=== PATIENT | male | born 1950 | race Caucasian/White ===

== ENCOUNTER 2021-06-27 19:47 | Observation (INO) | payer MEDICARE, SELFPAY ==
[2021-06-27] VITALS (14 sets, daily range): BP systolic 109–168; BP diastolic 61–81; PULSE 49–75; RESP 9–21; TEMP 36.9; O2SAT 95–100; BMI 26.6
--- NOTE | 2021-06-27 19:53 | DI.RAD.S_ITS ---
PROCEDURE: XR CHEST 1V INDICATIONS: chest pain TECHNIQUE: One view of the chest was acquired. COMPARISON: None. FINDINGS: Surgical changes and devices: None. Lungs and pleura: Lungs are clear. No pleural effusions or pneumothorax. Mediastinum: Mediastinal contours appear normal. Heart size is normal. Bones and chest wall: No suspicious bony lesions. Overlying soft tissues appear unremarkable. IMPRESSION: No acute cardiopulmonary abnormality Dictated by: Fahad Suero M.D. on 06/27/2021 at 20:40 Approved by: Fahad Suero M.D. on 06/27/2021 at 20:41
--- NOTE | 2021-06-27 20:09 | ED_ITS ---
HPI - Chest Pain General Chief Complaint: Chest Pain Stated Complaint: chest tightness x2 hours Time Seen by Provider: 06/27/21 19:52 History of Present Illness HPI narrative: 71M nonsmoker without any chronic medical history presents with his in the chief complaint of retrosternal chest pressure that started 2-3 hours prior to his arrival. He states that he was just getting ready to eat dinner when he started noticing symptoms. He denies any obvious provocation but states that rest seems to improve it. He states that at its most intense it was a 3/10 and currently is a 2/10. It was slightly worse when he walked in from registration. He denies any radiation. He admits to associated symptoms such as some mild lightheadedness and shortness of breath as well as nausea but no vomiting. He denies any unexplained diaphoresis. He denies any recent long distance travel o r injury nor clot but does have a remote history of prostate cancer. He denies any prior EKGs or history of provocative testing or echocardiogram Review of Systems Review of Systems Narrative: GENERAL: Denies chills, fatigue, malaise, fever, sweats. HEENT: Denies sinus pain, ear pain, sore throat, difficulty swallowing, dizziness. RESPIRATORY: Denies dyspnea, cough, wheezing, hemoptysis, sputum. CARDIOVASCULAR: See HPI GASTROINTESTINAL: Denies nausea, vomiting, abdominal pain, diarrhea, const ipation, melena. : Denies dysuria, frequency, incontinence, hematuria, urinary retention. MUSCULOSKELETAL: denies weakness, joint pain, or bony pain SKIN: Denies rash, skin lesions, or other NEUROLOGIC: Denies weakness, headache, numbness, change in speech, confusion, seizures, incoordination. PSYCHIATRIC: No concerning psychosocial issues. 12 point review of systems is negative except for those stated above Exam Narrative Exam Narrative: GENERAL: 71 year old patient appears stated age. Well-developed patient, in mild distress. HEAD: Atraumatic. Normocephalic. EYES: Pupils equal round and reactive. Extraocular motions intact. No scleral icterus. No injection or drainage. ENT: Nose without bleeding, purulent drainage. Throat without erythema, tonsillar hypertrophy or exudate. Airway patent. NECK: Trachea midline. Non tender CARDIOVASCULAR: Regular rate and rhythm without murmurs, gallops, or rubs. RESPIRATORY: Clear to auscultation. Breath sounds equal bilaterally. No wheezes, rales, or rhonchi. GASTROINTESTINAL: Abdomen soft, non-tender, nondistended. EXTREMITIES: No edema or joint tenderness. BACK: Nontender without deformity or crepitance. No flank tenderness. NEURO: AOx3. SKIN: No rash or erythema of visible areas Initial Vital Signs Initial Vital Signs: Vital Signs Blood Pressure 165/81 H 06/27/21 19:53 Scores HEART Score Heart Score history: Moderately Suspicious Heart Score EKG: Non-Specific repolarization disturbance Heart Score Age: > or = 65 years old Heart Score risk factors: No known risk factors Heart Score troponin: < or = to normal limit Heart Score Total: 4 Course Orders Ordered: ED Orders 06/27/21 19:53 XR chest 1V Stat 06/27/21 19:56 EKG-12 Lead Stat 06/27/21 20:01 Complete Blood Count AUTO DIFF Stat Comprehensive Metabolic Panel Stat D Dimer Stat Lipase Stat NT-proBNP (BNP-Adult 18+) Stat Prothrombin Time INR Stat Troponin & CK Cardiac Panel Stat 06/27/21 20:10 EKG-12 Lead Routine 06/27/21 20:26 EKG-12 Lead Routine 06/27/21 22:18 Troponin & CK Cardiac Panel Stat 06/27/21 23:49 Education, smoking cessation ONGOING 06/28/21 05:00 Basic Metabolic Panel Routine Complete Blood Count AUTO DIFF Routine Troponin I Routine Acetaminophen (Acetaminophen 325 Mg Tablet) 650 mg PO Q6HR PRN PRN Reason: Fever/Mild Pain (1-3) Aspirin (Aspirin Ec 81 Mg Tablet) 81 mg PO DAILY [facility] Atorvastatin Calcium (Atorvastatin 20 Mg Tablet) 80 mg PO DAILY [facility] Enoxaparin Sodium (Enoxaparin 40 Mg/0.4 Ml Syringe) 40 mg SUBCUT DAILY [facility] Nitroglycerin (Nitroglycerin 0.4 Mg Sl Tab) 0.4 mg SL [id number] PRN PRN Reason: Chest Pain Discontinued Medications Aspirin (Aspirin 81 Mg Chew Tab) 324 mg PO NOW ONE Stop: 06/27/21 19:54 Last Admin: 06/27/21 20:13 Dose: 162 mg Documented by: HERNAN Sodium Chloride (Normal Saline 0.9%) 1,000 mls @ 150 mls/hr IV CONT LENA Last Admin: 06/27/21 20:12 Dose: 150 mls/hr Documented by: HERNAN Nitroglycerin (Nitroglycerin 0.4 Mg Sl Tab) 0.4 mg SL [id number] PRN PRN Reason: Chest Pain Last Admin: 06/27/21 20:15 Dose: 0.4 mg Documented by: HERNAN Vital Signs Vital signs: Vital Signs - 8 hr 06/27/21 19:53 06/27/21 19:55 06/27/21 19:59 Temperature 98.4 F Pulse Rate 70 70 Respiratory Rate 18 16 Blood Pressure 165/81 H 165/81 H Pulse Oximetry 100 97 06/27/21 20:00 06/27/21 20:15 06/27/21 20:22 Temperature Pulse Rate 64 75 67 Respiratory Rate 16 12 Blood Pressure 168/81 H 109/66 Pulse Oximetry 98 95 06/27/21 20:30 06/27/21 21:00 06/27/21 21:30 Temperature Pulse Rate 54 L 49 L 51 L Respiratory Rate 13 12 9 L Blood Pressure 112/67 119/66 113/61 Pulse Oximetry 95 97 96 06/27/21 22:00 06/27/21 22:30 06/27/21 23:00 Temperature Pulse Rate 51 L 52 L 50 L Respiratory Rate 16 10 L 13 Blood Pressure 127/69 118/68 118/66 Pulse Oximetry 97 96 96 06/27/21 23:08 06/27/21 23:30 06/28/21 00:00 Temperature Pulse Rate 62 58 L 55 L Respiratory Rate 21 16 13 Blood Pressure 122/68 115/69 Pulse Oximetry 97 96 97 MDM - Chest Pain Lab Data Result diagrams: 06/27/21 20:01 06/27/21 20:01 Labs: Lab Results 06/27/21 06/27/21 06/27/21 Range/Units 20:01 20:01 20:01 WBC 5.0 (4.5-11.0) X10^3/uL RBC 4.63 (4.5-5.9) X10^6/uL Hgb 14.8 (13.5-17.5) g/dL Hct 43.1 (41-53) % MCV 93.1 (80-100) fL MCH 31.9 (26-34) PG MCHC 34.3 (30-36) % RDW 13.1 (11.6-14.8) % Plt Count 142 L (150-400) X10^3/uL Neut % (Auto) 46.6 L (50-75) % Lymph % (Auto) 37.4 (25-40) % [place] % (Auto) 12.3 (3-14) % Eos % (Auto) 3.1 (2-4) % Baso % (Auto) 0.6 (0-2) % Neut # (Auto) 2300 (4422-8323) /uL Lymph # (Auto) 1900 (1519-0693) /uL [place] # (Auto) 600 (0-900) /uL Eos # (Auto) 200 (0-450) /uL Baso # (Auto) 0 (0-100) /uL PT 12.0 (10.1-12.7) SECONDS INR 1.1 (0.9-1.3) D-Dimer (<230) ng/mL Sodium 133 L (137-145) mmol/L Potassium 3.9 (3.4-5.1) mmol/L Chloride 101 (98-107) mmol/L Carbon Dioxide 24 (22-32) mmol/L BUN 20 (9-20) mg/dL Creatinine 0.89 (0.66-1.25) mg/dL Estimated GFR > 60.0 (>60) mL/min BUN/Creatinine Ratio 22.5 H (6-22) Glucose 142 H (80-110) mg/dL Calcium 9.2 (8.4-10.2) mg/dL Total Bilirubin 0.5 (0.2-1.3) mg/dL AST 35 (17-59) IU/L ALT 28 (<50) IU/L Alkaline Phosphatase 53 (38-126) U/L Total Creatine Kinase 162 (55-170) U/L CK-MB (CK-2) 1.84 (<2.37) ng/mL CK-MB (CK-2) Rel Index 1.1 L (1.5-5.0) % Troponin I < 0.012 (0.01-0.034) ng/mL NT-Pro-B Natriuret Pep 114 (<125) pg/mL Total Protein 7.3 (6.3-8.2) g/dL Albumin 4.4 (3.5-5.0) g/dL Globulin 2.9 (1.7-4.1) g/dL Albumin/Globulin Ratio 1.5 (1.0-2.8) Lipase 177 (23-300) U/L 06/27/21 06/27/21 Range/Units 20:01 22:18 WBC (4.5-11.0) X10^3/uL RBC (4.5-5.9) X10^6/uL Hgb (13.5-17.5) g/dL Hct (41-53) % MCV (80-100) fL MCH (26-34) PG MCHC (30-36) % RDW (11.6-14.8) % Plt Count (150-400) X10^3/uL Neut % (Auto) (50-75) % Lymph % (Auto) (25-40) % [place] % (Auto) (3-14) % Eos % (Auto) (2-4) % Baso % (Auto) (0-2) % Neut # (Auto) (4960-7093) /uL Lymph # (Auto) (8470-1977) /uL [place] # (Auto) (0-900) /uL Eos # (Auto) (0-450) /uL Baso # (Auto) (0-100) /uL PT (10.1-12.7) SECONDS INR (0.9-1.3) D-Dimer < 200 (<230) ng/mL Sodium (137-145) mmol/L Potassium (3.4-5.1) mmol/L Chloride (98-107) mmol/L Carbon Dioxide (22-32) mmol/L BUN (9-20) mg/dL Creatinine (0.66-1.25) mg/dL Estimated GFR (>60) mL/min BUN/Creatinine Ratio (6-22) Glucose (80-110) mg/dL Calcium (8.4-10.2) mg/dL Total Bilirubin (0.2-1.3) mg/dL AST (17-59) IU/L ALT (<50) IU/L Alkaline Phosphatase (38-126) U/L Total Creatine Kinase 131 (55-170) U/L CK-MB (CK-2) 1.44 (<2.37) ng/mL CK-MB (CK-2) Rel Index 1.1 L (1.5-5.0) % Troponin I < 0.012 (0.01-0.034) ng/mL NT-Pro-B Natriuret Pep (<125) pg/mL Total Protein (6.3-8.2) g/dL Albumin (3.5-5.0) g/dL Globulin (1.7-4.1) g/dL Albumin/Globulin Ratio (1.0-2.8) Lipase (23-300) U/L Imaging Data Chest x-ray: Radiologist's Impression: Launch?[place] [address] XRay Report Signed Patient: Sang James MR#: [id number] : 1950 Acct:[id number] Age/Sex: 71 / M Date of Service: 06/27/21 Loc: ED Accession Number: [id number] ?? Procedure: XR chest 1V Ordering Provider: Sharif Hairston D.O. PROCEDURE:? XR CHEST 1V ? INDICATIONS:? chest pain ? TECHNIQUE:? One view of the chest was acquired.? ? COMPARISON:? None. ? FINDINGS:? ? Surgical changes and devices:? None.? ? Lungs and pleura:? Lungs are clear.? No pleural effusions or pneumothorax.? ? Mediastinum:? Mediastinal contours appear normal.? Heart size is normal.? ? Bones and chest wall:? No suspicious bony lesions.? Overlying soft tissues appear unremarkable.? ? IMPRESSION:? No acute cardiopulmonary abnormality ? ? Dictated by: Fahad Suero M.D. on 06/27/2021 at 20:40 ? ? Approved by: Fahad Suero M.D. on 06/27/2021 at 20:41 ? ECG Data Interpretation: EKG #1: Sinus rhythm with occasional PVCs. Right bundle branch block. No ST segmental elevations or depressions. T-wave inversions in lateral leads. EKG #2: largely unchanged EKG #3: unchanged Discharge Plan Departure Patient Disposition: Admitted as Observation Clinical Impression: Chest pain Admit Date/Time: 06/28/21 00:16 Admit Provider: Karlos Rosales
[2021-06-27 20:10] LABS: Add Manual Diff / Slide Review NO; Basophils Absolute Auto 0 /uL (0-100); Basophils Percent Auto 0.6 % (0-2); Eosinophils Absolute Auto 200 /uL (0-450); Eosinophils Percent Auto 3.1 % (2-4); Hematocrit 43.1 % (41-53); Hemoglobin 14.8 g/dL (13.5-17.5); Lymphocytes Absolute Auto 1900 /uL (1100-4500); Lymphocytes Percent Auto 37.4 % (25-40); Mean Corpuscular HGB Conc 34.3 % (30-36); Mean Corpuscular Hemoglobin 31.9 PG (26-34); Mean Corpuscular Volume 93.1 fL (80-100); Monocytes Absolute Auto 600 /uL (0-900); Monocytes Percent Auto 12.3 % (3-14); Neutrophils Absolute Auto 2300 /uL (1500-7000); Neutrophils Percent Auto 46.6 % (50-75); Platelet Count 142 X10^3/uL (150-400); Red Blood Cell Count 4.63 X10^6/uL (4.5-5.9); Red Cell Distribution Width 13.1 % (11.6-14.8)
[2021-06-27] MEDS: SODIUM CHLORIDE 0.9% 1,000 ML 150 ML IV (20:12)
[2021-06-27] MEDS: ASPIRIN 81 MG CHEW TAB 324 MG PO (20:13)
[2021-06-27] MEDS: NITROGLYCERIN 0.4 MG SL TAB SL (20:15)
[2021-06-27 20:18] LABS: INR 1.1 (0.9-1.3)
[2021-06-27 20:22] LABS: Alanine Aminotransferase 28 IU/L (<50); Albumin 4.4 g/dL (3.5-5.0); Albumin Globulin Ratio 1.5 (1.0-2.8); Alkaline Phosphatase 53 U/L (38-126); Aspartate Aminotransferase 35 IU/L (17-59); BUN Creatinine Ratio 22.5 (6-22); Bilirubin Total 0.5 mg/dL (0.2-1.3); Blood Urea Nitrogen 20 mg/dL (9-20); Calcium 9.2 mg/dL (8.4-10.2); Carbon Dioxide 24 mmol/L (22-32); Chloride 101 mmol/L (98-107); Creatine Kinase 162 U/L (55-170); D Dimer < 200 ng/mL (<230); Estimated Glomerular Filt Rate > 60.0 mL/min (>60); Globulin 2.9 g/dL (1.7-4.1); Glucose 142 mg/dL (80-110); HEMOLYSIS < 15 (0-50); Lipase 177 U/L (23-300); Potassium 3.9 mmol/L (3.4-5.1); Sodium 133 mmol/L (137-145); Total Protein 7.3 g/dL (6.3-8.2)
--- NOTE | 2021-06-27 20:25 | PC.NURSE ---
Pt given NTG x 1 SL and BP dropped from 165/81 to 109/66, pain improved. pt states 1-09/10. fluids opened for preload support. Dr gil made aware. holding nitro at this time. RT repeating EKG
[2021-06-27 20:34] LABS: NT-proBNP (BNP-Adult 18+) 114 pg/mL (<125); Troponin I < 0.012 ng/mL (0.01-0.034)
[2021-06-27 20:37] LABS: CKMB % Relative Index 1.1 % (1.5-5.0); Creatine Kinase MB 1.84 ng/mL (<2.37)
[2021-06-27 22:36] LABS: Creatine Kinase 131 U/L (55-170)
[2021-06-27 22:49] LABS: Troponin I < 0.012 ng/mL (0.01-0.034)
[2021-06-27 22:52] LABS: CKMB % Relative Index 1.1 % (1.5-5.0); Creatine Kinase MB 1.44 ng/mL (<2.37)
[2021-06-28] VITALS (30 sets, daily range): BP systolic 115–138; BP diastolic 63–83; PULSE 48–77; RESP 10–35; TEMP 36.4; O2SAT 95–98
--- NOTE | 2021-06-28 00:01 | P.HP_ITS ---
History of Present Illness History of Present Illness Date Patient Seen: 06/28/21 Time Patient Seen: 00:30 Chief complaint: chest tightness x2 hours Narrative: Mr. Lawrence is a 71M with no significant PMH who presents to the hospital with chest pain. He states he has had chest pain intermittently for the last couple weeks. He has noticed within the last day that his chest pain has worsened and lasted longer. He had substernal chest pain, felt pressure-like, no shortness of breath, no radiation. He had some nausea, and dizziness associated with this. His symptoms improved with nitro. He does not have any cardiac history, never had a cardiac stress test. He has been quite active recently and has not had chest pain. In the ED workup was done, vitals were notable for mild bradycardia. Labs notable for WBC 5.0, Hgb 14.8, plts 142. Na 133, creatinine 0.89, troponin x2. EKG showed T-wave inversions the anterior and lateral leads. Chest xray showed no acute process. He was aspirin and admitted for further treatment. Family history: Father with CAD Social history: never smoker Meds: none Patient History Family & Social History Safety & Behavioral: Feels Safe in Current Yes Environment Been Physically Hurt or No Threatened By a Person Review of Systems Review of Systems Narrative: 14 systems reviewed and negative aside from what is noted in HPI Exam Vital Signs (past 8 hours): - 06/27/21 19:53 06/27/21 19:55 06/27/21 19:59 Temperature 98.4 F Pulse Rate 70 70 Respiratory Rate 18 16 Blood Pressure 165/81 H 165/81 H Pulse Oximetry 100 97 06/27/21 20:00 06/27/21 20:15 06/27/21 20:22 Temperature Pulse Rate 64 75 67 Respiratory Rate 16 12 Blood Pressure 168/81 H 109/66 Pulse Oximetry 98 95 06/27/21 20:30 Temperature Pulse Rate 54 L Respiratory Rate 13 Blood Pressure 112/67 Pulse Oximetry 95 Oxygen Delivery Method Room Air Narrative Exam Narrative: GEN: no acute distress HEENT: PERRL, moist mucous membranes NECK: trachea midline, no JVD CV: regular rate and rhythm, no murmurs PULM: clear bilaterally, no wheezes, rhonchi, rales ABD: soft, nontender, nondistended, no organomegaly EXT: warm and well perfused, no edema NEURO: awake, alert, oriented, no focal deficits PSYCH: pleasant, cooperative Objective Labs Result Diagrams: 06/27/21 20:01 06/27/21 20:01 Labs: Laboratory Results - last 24 hr 06/27/21 06/27/21 06/27/21 20:01 20:01 20:01 WBC 5.0 RBC 4.63 Hgb 14.8 Hct 43.1 MCV 93.1 MCH 31.9 MCHC 34.3 RDW 13.1 Plt Count 142 L Neut % (Auto) 46.6 L Lymph % (Auto) 37.4 [place] % (Auto) 12.3 Eos % (Auto) 3.1 Baso % (Auto) 0.6 Neut # (Auto) 2300 Lymph # (Auto) 1900 [place] # (Auto) 600 Eos # (Auto) 200 Baso # (Auto) 0 PT 12.0 INR 1.1 D-Dimer Sodium 133 L Potassium 3.9 Chloride 101 Carbon Dioxide 24 BUN 20 Creatinine 0.89 Estimated GFR > 60.0 BUN/Creatinine Ratio 22.5 H Glucose 142 H Calcium 9.2 Total Bilirubin 0.5 AST 35 ALT 28 Alkaline Phosphatase 53 Total Creatine Kinase 162 CK-MB (CK-2) 1.84 CK-MB (CK-2) Rel Index 1.1 L Troponin I < 0.012 NT-Pro-B Natriuret Pep 114 Total Protein 7.3 Albumin 4.4 Globulin 2.9 Albumin/Globulin Ratio 1.5 Lipase 177 06/27/21 06/27/21 20:01 22:18 WBC RBC Hgb Hct MCV MCH MCHC RDW Plt Count Neut % (Auto) Lymph % (Auto) [place] % (Auto) Eos % (Auto) Baso % (Auto) Neut # (Auto) Lymph # (Auto) [place] # (Auto) Eos # (Auto) Baso # (Auto) PT INR D-Dimer < 200 Sodium Potassium Chloride Carbon Dioxide BUN Creatinine Estimated GFR BUN/Creatinine Ratio Glucose Calcium Total Bilirubin AST ALT Alkaline Phosphatase Total Creatine Kinase 131 CK-MB (CK-2) 1.44 CK-MB (CK-2) Rel Index 1.1 L Troponin I < 0.012 NT-Pro-B Natriuret Pep Total Protein Albumin Globulin Albumin/Globulin Ratio Lipase Assessment & Plan Assessment & Plan narrative: Mr. James is a 71M who presents with chest pain. 1. Acute chest pain -EKG with abnormal T-waves in lateral leads, no prior EKG to compare -troponin negative x2 -check another troponin -continue aspirin, order full dose statin 2. Thrombocytopenia -mild, no need for transfusion CODE: Full Proxy: Elsy James, I have utilized all available immediate resources to obtain, update, or review of the patient's current medications Time Spent With Patient Critical Care time: I spent a total of [] minutes of critical care time on this patient's care today; this time is exclusive of procedural time. Quality MIPS - Admit I confirm the patient?s Advance Care Plan is present, Code status is documented, Surrogate decision maker is in patient?s record [If Yes, STOP here]: Yes
[2021-06-28 05:36] LABS: Add Manual Diff / Slide Review NO; Basophils Absolute Auto 0 /uL (0-100); Eosinophils Absolute Auto 100 /uL (0-450); Eosinophils Percent Auto 2.8 % (2-4); Hematocrit 39.3 % (41-53); Hemoglobin 13.4 g/dL (13.5-17.5); Lymphocytes Absolute Auto 1500 /uL (1100-4500); Lymphocytes Percent Auto 30.1 % (25-40); Mean Corpuscular Hemoglobin 31.8 PG (26-34); Mean Corpuscular Volume 93.5 fL (80-100); Monocytes Absolute Auto 500 /uL (0-900); Monocytes Percent Auto 10.9 % (3-14); Neutrophils Absolute Auto 2700 /uL (1500-7000); Neutrophils Percent Auto 55.2 % (50-75); Platelet Count 124 X10^3/uL (150-400); Red Blood Cell Count 4.21 X10^6/uL (4.5-5.9); Red Cell Distribution Width 13.1 % (11.6-14.8); White Blood Cell Count 4.9 X10^3/uL (4.5-11.0)
[2021-06-28 05:39] LABS: BUN Creatinine Ratio 20.3 (6-22); Blood Urea Nitrogen 16 mg/dL (9-20); Calcium 8.6 mg/dL (8.4-10.2); Carbon Dioxide 24 mmol/L (22-32); Chloride 105 mmol/L (98-107); Estimated Glomerular Filt Rate > 60.0 mL/min (>60); Glucose 99 mg/dL (80-110); HEMOLYSIS 27 (0-50); Potassium 4.1 mmol/L (3.4-5.1); Sodium 134 mmol/L (137-145)
[2021-06-28 05:51] LABS: Troponin I < 0.012 ng/mL (0.01-0.034)
[2021-06-28] MEDS: ASPIRIN EC 81 MG TABLET PO (08:43)
[2021-06-28] MEDS: ENOXAPARIN 40 MG/0.4 ML SYRINGE SUBCUT (08:44)
[2021-06-28] MEDS: ATORVASTATIN 20 MG TABLET 80 MG PO (08:44)
[2021-06-28 12:47] LABS: Troponin I 0.013 ng/mL (0.01-0.034)
--- NOTE | 2021-06-28 13:35 | P.DS_ITS ---
History of Present Illness History of Present Illness Date Patient Seen: 06/28/21 Chief complaint: chest tightness x2 hours Narrative: Mr. Lawrence is a 71M with no significant PMH who presents to the hospital with chest pain. He states he has had chest pain intermittently for the last couple weeks. He has noticed within the last day that his chest pain has worsened and lasted longer. He had substernal chest pain, felt pressure-like, no shortness of breath, no radiation. He had some nausea, and dizziness associated with this. His symptoms improved with nitro. He does not have any cardiac history, never had a cardiac stress test. He has been quite active recently and has not had chest pain. In the ED workup was done, vitals were notable for mild bradycardia. Labs notable for WBC 5.0, Hgb 14.8, plts 142. Na 133, creatinine 0.89, troponin x2. EKG showed T-wave inversions the anterior and lateral leads. Chest xray showed no acute process. He was aspirin and admitted for further treatment. Family history: Father with CAD Social history: never smoker Meds: none Discharge Providers Provider Date of admission: 06/28/21 00:16 Discharge Date: 06/28/21 Consults: NONE Discharge provider: Jose Mills, DO Summary Hospital Course Discharge Diagnosis: ?ATYPICAL CHEST PAIN.? RESOLVED.? ?CARDIAC CAUSES RULED OUT ?POSSIBLE ACID REFLUX DISEASE.? DISCHARGE ON PEPCID AND CARAFATE ?OVERWEIGHT.? BMI OF 26 Hospital Course: PATIENT ADMITTED OVERNIGHT WITH ATYPICAL CHEST PAIN. ? CARDIAC CAUSES RULE OUT WITH TROPONIN REMAINING? NEGATIVE ON MULTIPLE LAB DRAWN ?HE IS STILL IMAGES DID NOT SHOW ANY SIGNIFICANT SEGMENT CHANGES OR ABNORMALITY. ? HIS LABS REMAINED FAIRLY STABLE WELL. ? HE WAS DISCHARGED TO HOME.? ? HE WILL FOLLOW-UP WITH HIS PRIMARY CARE PHYSICIAN FOR ADDITIONAL WORKUP INDICATED? CLINICALLY. ? STRESS TEST IS RECOMMENDED TO BE ORDERED OUTPATIENT?? Status at Discharge Cognitive/behavioral status at discharge: oriented Functional status at discharge: independent ambulation Overall status at discharge: patient is back to baseline Exam Vital Signs (past 8 hours): - 06/28/21 06:13 06/28/21 06:30 06/28/21 07:00 Temperature Pulse Rate 63 58 L 53 L Respiratory Rate 12 12 Blood Pressure Pulse Oximetry 97 97 98 06/28/21 07:30 06/28/21 08:00 06/28/21 08:46 Temperature Pulse Rate 55 L 59 L 66 Respiratory Rate Blood Pressure 128/69 Pulse Oximetry 95 98 06/28/21 08:51 06/28/21 09:00 06/28/21 09:30 Temperature 97.6 F Pulse Rate 64 71 63 Respiratory Rate 16 23 13 Blood Pressure 138/83 Pulse Oximetry 97 97 98 06/28/21 10:00 06/28/21 10:30 06/28/21 11:00 Temperature Pulse Rate 62 64 63 Respiratory Rate 10 L Blood Pressure Pulse Oximetry 98 96 98 06/28/21 11:34 06/28/21 12:00 06/28/21 12:30 Temperature Pulse Rate 72 77 65 Respiratory Rate 24 35 H 11 L Blood Pressure Pulse Oximetry 97 97 98 06/28/21 13:00 06/28/21 13:08 Temperature Pulse Rate 77 74 Respiratory Rate 19 15 Blood Pressure 135/80 Pulse Oximetry 98 98 Oxygen Delivery Method Room Air Narrative Exam Narrative: NO ACUTE DISTRESS. PATIENT IS ALERT ORIENTED X3. VITAL SIGNS STABLE HEAD ATRAUMATIC NORMOCEPHALIC NECK : SUPPLE WITHOUT ADENOPATHY NO CAROTID BRUITS EYE: EOMI, PERRLA, NORMAL CONJUNCTIVA; NO JAUNDICE CHEST: REGULAR RATE. NO RUBS. PMI IS NON DISPLACED. NO MURMURS; NORMAL S1- S2 PULMONARY: DECREASED BS OVER THE BASES. MILD BIBASILAR CRACKLES NOTED; NO INCREASED DULLNESS TO PERCUSSION ABDOMEN: SOFT. NONTENDER. NONDISTENDED. BOWEL SOUNDS ARE PRESENT IN ALL 4 QUADRANTS. NO MASS. EXTREMITIES: NO EDEMA.. NO CYANOSIS CLUBBING NOTED. NEURO: CRANIAL NERVES 2-12 GROSSLY INTACT. NO FOCAL NEUROLOGICAL DEFICIT NOTED. MSK: NORMAL RANGE OF MOTION FOR AGE. NO JOINT EFFUSION. SKIN: NORMAL FOR ETHNICITY; NO ECCHYMOSIS. NO LESION. GOOD TURGOR.; NO RASHES : NORMAL EXTERNAL GENITALIA. PSYCH : APPROPRIATE MOOD AND AFFECT. ALERT AWAKE ORIENTED X3 Objective Labs Result Diagrams: 06/28/21 05:10 06/28/21 05:10 Labs: Laboratory Results - last 24 hr 06/27/21 06/27/21 06/27/21 20:01 20:01 20:01 WBC 5.0 RBC 4.63 Hgb 14.8 Hct 43.1 MCV 93.1 MCH 31.9 MCHC 34.3 RDW 13.1 Plt Count 142 L Neut % (Auto) 46.6 L Lymph % (Auto) 37.4 [place] % (Auto) 12.3 Eos % (Auto) 3.1 Baso % (Auto) 0.6 Neut # (Auto) 2300 Lymph # (Auto) 1900 [place] # (Auto) 600 Eos # (Auto) 200 Baso # (Auto) 0 PT 12.0 INR 1.1 D-Dimer Sodium 133 L Potassium 3.9 Chloride 101 Carbon Dioxide 24 BUN 20 Creatinine 0.89 Estimated GFR > 60.0 BUN/Creatinine Ratio 22.5 H Glucose 142 H Calcium 9.2 Total Bilirubin 0.5 AST 35 ALT 28 Alkaline Phosphatase 53 Total Creatine Kinase 162 CK-MB (CK-2) 1.84 CK-MB (CK-2) Rel Index 1.1 L Troponin I < 0.012 NT-Pro-B Natriuret Pep 114 Total Protein 7.3 Albumin 4.4 Globulin 2.9 Albumin/Globulin Ratio 1.5 Lipase 177 06/27/21 06/27/21 06/28/21 20:01 22:18 05:10 WBC RBC Hgb Hct MCV MCH MCHC RDW Plt Count Neut % (Auto) Lymph % (Auto) [place] % (Auto) Eos % (Auto) Baso % (Auto) Neut # (Auto) Lymph # (Auto) [place] # (Auto) Eos # (Auto) Baso # (Auto) PT INR D-Dimer < 200 Sodium Potassium Chloride Carbon Dioxide BUN Creatinine Estimated GFR BUN/Creatinine Ratio Glucose Calcium Total Bilirubin AST ALT Alkaline Phosphatase Total Creatine Kinase 131 CK-MB (CK-2) 1.44 CK-MB (CK-2) Rel Index 1.1 L Troponin I < 0.012 < 0.012 NT-Pro-B Natriuret Pep Total Protein Albumin Globulin Albumin/Globulin Ratio Lipase 06/28/21 06/28/21 06/28/21 05:10 05:10 12:10 WBC 4.9 RBC 4.21 L Hgb 13.4 L Hct 39.3 L MCV 93.5 MCH 31.8 MCHC 34.0 RDW 13.1 Plt Count 124 L Neut % (Auto) 55.2 Lymph % (Auto) 30.1 [place] % (Auto) 10.9 Eos % (Auto) 2.8 Baso % (Auto) 1.0 Neut # (Auto) 2700 Lymph # (Auto) 1500 [place] # (Auto) 500 Eos # (Auto) 100 Baso # (Auto) 0 PT INR D-Dimer Sodium 134 L Potassium 4.1 Chloride 105 Carbon Dioxide 24 BUN 16 Creatinine 0.79 Estimated GFR > 60.0 BUN/Creatinine Ratio 20.3 Glucose 99 Calcium 8.6 Total Bilirubin AST ALT Alkaline Phosphatase Total Creatine Kinase CK-MB (CK-2) CK-MB (CK-2) Rel Index Troponin I 0.013 NT-Pro-B Natriuret Pep Total Protein Albumin Globulin Albumin/Globulin Ratio Lipase Discharge Plan Discharge Plan Patient Disposition: Home Discharge orders & Medications Prescriptions: New nitroglycerin [Nitrostat] 0.4 mg Tablet, Sublingual 0.4 mg sublingual [id number] PRN (Reason: Chest Pain) Qty: 10 0RF famotidine [Pepcid] 40 mg tablet 40 mg PO BID Qty: 60 0RF sucralfate [Carafate] 1 gram tablet 1 g PO QACHS Qty: 120 0RF Diet/Activity/Treatments Diet: Low-fat and Low-cholesterol Diet comment: MECHANICAL SOFT Activity: TOLERATED Skin/Wound/Dressing Care Report to your healthcare provider any signs of infection, such as:: chills, fever, night sweats, increased pain and unusual drainage Discharge Data Attending Provider: Karlos Rosales
== END 2021-06-28 14:10 | disposition home or self-care (01) ==
LOC: ED 20:41 → AC 06-28 00:17
PROVIDERS: Hospitalist; Admitting Provider Internal Medicine; Emergency Provider Emergency Medicine; Referring Provider Emergency Medicine; Visit Provider Internal Medicine
DX: R07.9 Chest pain, unspecified (principal); R00.1 Bradycardia, unspecified; D69.6 Thrombocytopenia, unspecified; E66.3 Overweight; Z68.26 Body mass index [BMI] 26.0-26.9, adult
CPT/HCPCS: 36415; 71045; 80048; 80053; 82550; 82553; 83690; 83880; 84484; 85025; 85379; 85610; 93005; 96372; 99284; 99406; G0378; J1650